=== PATIENT | male | born 1990 | race Caucasian/White ===

== ENCOUNTER → 2025-01-18 09:41 | Outpatient (BNVA) | payer OTHER, SELFPAY | PROVIDERS: Family Provider Nurse Practitioner; Visit Provider Nurse Practitioner Family | DX: R21 Rash and other nonspecific skin eruption (principal); B35.6 Tinea cruris | CPT/HCPCS: 80053 ==

== ENCOUNTER → 2025-02-01 10:18 | Outpatient (BNVA) | payer OTHER, SELFPAY | PROVIDERS: Family Provider Nurse Practitioner Family; Visit Provider Nurse Practitioner Family | DX: R21 Rash and other nonspecific skin eruption (principal) | CPT/HCPCS: 80053 ==